=== PATIENT | male | born 1960 | race African-American/Black ===

== ENCOUNTER 2024-07-04 17:47 | Emergency (ER) | payer OTHER ==
[~2024-07-04] VITALS: Ht 180.3 cm; Wt 95.0 kg
[2024-07-04 18:06] VITALS: TEMP 98.1; O2SAT 100
[2024-07-04 18:10] VITALS: O2SAT 98
[2024-07-04 23:59] VITALS: BP 156/95; PULSE 97; RESP 18
[2024-07-04] MEDS: KETOROLAC 15MG/ML VIAL IM ONE (23:59)
== END 2024-07-05 00:01 | disposition home or self-care (01) ==
LOC: ER 17:47
DX: R60.0 Localized edema (principal); I10 Essential (primary) hypertension
CPT/HCPCS: 99285; 93971; 96372; J1885